=== PATIENT | female | born 1975 | race Hispanic/Latino ===

== ENCOUNTER 2021-09-27 18:56 | Emergency (ER) | payer BC ==
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
[2021-09-27 20:14] VITALS: BP 109/79; TEMP 98.3; O2SAT 98
== END 2021-09-27 19:59 | disposition left against medical advice (07) ==
LOC: ER 18:56
DX: Z53.21 Procedure and treatment not carried out due to patient leaving prior to being seen by health care provider (principal)
CPT/HCPCS: 99281

== ENCOUNTER 2021-10-01 12:56 | Emergency (ER) | payer BC ==
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
--- NOTE | 2021-10-01 14:59 | RAD REPORT ---
EXAM DESCRIPTION: Phillip Single View10/01/2021 2:42 pm CLINICAL HISTORY: Chest pain COMPARISON: none FINDINGS: The lungs appear clear of acute infiltrate. The heart is normal size IMPRESSION: No acute abnormalities displayed
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
[2021-10-01 16:04] VITALS: BP 117/53; TEMP 98.7; O2SAT 99
== END 2021-10-01 15:50 | disposition home or self-care (01) ==
LOC: ER 12:56
DX: S29.012A Strain of muscle and tendon of back wall of thorax, initial encounter (principal); S16.1XXA Strain of muscle, fascia and tendon at neck level, initial encounter; S90.31XA Contusion of right foot, initial encounter; V49.40XA Driver injured in collision with unspecified motor vehicles in traffic accident, initial encounter
CPT/HCPCS: 71045; 72125; 99283